=== PATIENT | male | born 1980 | race Two or more races ===

== ENCOUNTER 2023-11-24 15:01 | Emergency (ER) | payer OTHER ==
[2023-11-24 16:19] VITALS: RESP 20; TEMP 98.1; BMI 26.1
[2023-11-24 18:55] VITALS: BP 109/76; PULSE 61
== END 2023-11-24 18:55 ==
LOC: JER 15:01
DX: M79.661 Pain in right lower leg (principal); R60.0 Localized edema
CPT/HCPCS: 93971-TC; 99284-25